=== PATIENT | male | born 1995 | race Caucasian/White ===

== ENCOUNTER 2017-11-04 09:32 | Emergency (ER) | payer BC ==
[~2017-11-04] VITALS: Ht 175.3 cm; Wt 74.8 kg
[2017-11-04] MEDS ORDERED: NS(*) 0.9% 1000 ML BAG 1,000 ML IV ONE ×2 (09:35)
[2017-11-04] MEDS ORDERED: ONDANSETRON 4 MG/2 ML VIAL IVP ONE (09:35)
--- NOTE | 2017-11-04 09:39 | ER Report ---
History and Physical Time Seen By MD: 09:38 HPI/ROS CHIEF COMPLAINT: Vomiting HISTORY OF PRESENT ILLNESS: 22-year-old male who was out drinking last night as there was [employer] [place] [place] drank heavily until about midnight to 1:00 went to bed woke about 2 hours later began to projectile vomit vomiting persistently for the last couple of hours brought here by his girlfriend for evaluation otherwise unremarkable mild stomach discomfort in the epigastrium otherwise negative except as complaints REVIEW OF SYSTEMS: Respiratory: No cough, no dyspnea. Cardiovascular: No chest pain, no palpitations. Gastrointestinal: Vomiting and epigastric pain Musculoskeletal: No back pain. Remainder of the 14 system rev: Yes Allergies: Coded Allergies: No Known Drug Allergies (Unverified , 11/04/17) Home Meds No Active Prescriptions or Reported Meds Reviewed Nurses Notes: Yes Old Medical Records Reviewed: Yes Constitutional Vital Sign - Last 24 Hours 11/04/17 09:39 Temp 97.9 Pulse 93 Resp 16 B/P (MAP) 127/82 Pulse Ox 95 O2 Delivery Room Air Physical Exam General Appearance: The patient is alert, has no immediate need for airway protection and no current signs of toxicity. [ ] Eyes: Pupils equal and round no injection. Respiratory: Chest is non tender, lungs are clear to auscultation. Cardiac: regular rate and rhythm [ ] Gastrointestinal: Abdomen is soft and non tender, no masses, bowel sounds normal. Musculoskeletal: Neck: Neck is supple and non tender. Extremities have full range of motion and are non tender. Skin: No rashes or lesions. [ ] DIFFERENTIAL DIAGNOSIS: After history and physical exam differential diagnosis was considered for enteritis gastroenteritis alcohol toxicity Medical Decision Making Data Points Result Diagram: 11/04/17 0959 11/04/17 0959 Laboratory Hematology Test 11/04/17 09:59 11/04/17 10:25 Red Blood Count 5.47 M/uL (4.00-5.60) Mean Corpuscular Volume 88.4 fL (80.0-96.0) Mean Corpuscular Hemoglobin 30.5 pg (26.0-33.0) Mean Corpuscular Hemoglobin Concent 34.5 g/dL (32.0-36.0) Red Cell Distribution Width 12.9 % (11.5-14.5) Mean Platelet Volume 7.0 fL (7.2-11.1) Neutrophils (%) (Auto) 80.9 % (39.4-72.5) Lymphocytes (%) (Auto) 14.2 % (17.6-49.6) Monocytes (%) (Auto) 4.4 % (4.1-12.4) Eosinophils (%) (Auto) 0.1 % (0.4-6.7) Basophils (%) (Auto) 0.4 % (0.3-1.4) Nucleated RBC Relative Count (auto) 0.0 /100WBC Neutrophils # (Auto) 5.4 K/uL (2.0-7.4) Lymphocytes # (Auto) 0.9 K/uL (1.3-3.6) Monocytes # (Auto) 0.3 K/uL (0.3-1.0) Eosinophils # (Auto) 0.0 K/uL (0.0-0.5) Basophils # (Auto) 0.0 K/uL (0.0-0.1) Nucleated RBC Absolute Count (auto) 0.00 K/uL Sodium Level 144 mmol/L (137-145) Potassium Level 4.0 mmol/L (3.5-5.0) Chloride Level 104 mmol/L (98-107) Carbon Dioxide Level 25 mmol/L (22-30) Blood Urea Nitrogen 9 mg/dl (9-21) Creatinine 0.80 mg/dl (0.66-1.25) Glomerular Filtration Rate Calc > 60.0 Random Glucose 100 mg/dl (75-110) Calcium Level 9.2 mg/dl (8.4-10.2) Total Bilirubin 0.8 mg/dl (0.2-1.3) Aspartate Amino Transf (AST/SGOT) 38 U/L (0-35) Alanine Aminotransferase (ALT/SGPT) 49 U/L (0-56) Alkaline Phosphatase 101 U/L (0-126) Total Protein 7.3 gm/dl (6.3-8.2) Albumin 4.3 g/dl (3.5-5.0) Lipase 64 U/L (23-300) Serum Alcohol 110 mg/dl Chemistry Test 11/04/17 09:59 11/04/17 10:25 White Blood Count 6.6 k/uL (4.5-11.0) Red Blood Count 5.47 M/uL (4.00-5.60) Hemoglobin 16.7 g/dL (14.0-18.0) Hematocrit 48.4 % (42.0-52.0) Mean Corpuscular Volume 88.4 fL (80.0-96.0) Mean Corpuscular Hemoglobin 30.5 pg (26.0-33.0) Mean Corpuscular Hemoglobin Concent 34.5 g/dL (32.0-36.0) Red Cell Distribution Width 12.9 % (11.5-14.5) Platelet Count 352 K/uL (150-450) Mean Platelet Volume 7.0 fL (7.2-11.1) Neutrophils (%) (Auto) 80.9 % (39.4-72.5) Lymphocytes (%) (Auto) 14.2 % (17.6-49.6) Monocytes (%) (Auto) 4.4 % (4.1-12.4) Eosinophils (%) (Auto) 0.1 % (0.4-6.7) Basophils (%) (Auto) 0.4 % (0.3-1.4) Nucleated RBC Relative Count (auto) 0.0 /100WBC Neutrophils # (Auto) 5.4 K/uL (2.0-7.4) Lymphocytes # (Auto) 0.9 K/uL (1.3-3.6) Monocytes # (Auto) 0.3 K/uL (0.3-1.0) Eosinophils # (Auto) 0.0 K/uL (0.0-0.5) Basophils # (Auto) 0.0 K/uL (0.0-0.1) Nucleated RBC Absolute Count (auto) 0.00 K/uL Glomerular Filtration Rate Calc > 60.0 Calcium Level 9.2 mg/dl (8.4-10.2) Total Bilirubin 0.8 mg/dl (0.2-1.3) Aspartate Amino Transf (AST/SGOT) 38 U/L (0-35) Alanine Aminotransferase (ALT/SGPT) 49 U/L (0-56) Alkaline Phosphatase 101 U/L (0-126) Total Protein 7.3 gm/dl (6.3-8.2) Albumin 4.3 g/dl (3.5-5.0) Lipase 64 U/L (23-300) Serum Alcohol 110 mg/dl Toxicology Test 11/04/17 09:59 Serum Alcohol 110 mg/dl Urinalysis Test 11/04/17 10:25 ED Course/Re-evaluation ED Course ED clinical course medical decision making 22-year-old male comes in with persistent vomiting his alcohol level at time of presentation approximately 10 hours after he stopped drinking still at 110 which puts him at about a 3-400 level at the time that he allegedly stop drinking this is obvious alcohol toxicity alcohol poisoning and alcohol intoxication we'll advise him to desist from alcohol consumption and give 24-48 hours for to get better Decision to Disposition Date: Nov 04, 2017 Decision to Disposition Time: 10:40 Depart Departure Latest Vital Signs Vital Signs Date Time Temp Pulse Resp B/P (MAP) Pulse Ox O2 Delivery O2 Flow Rate FiO2 11/04/17 09:39 97.9 93 16 127/82 95 Room Air Impression: Primary Impression: Alcohol poisoning Additional Impression: Alcohol intoxication Condition: Improved Disposition: HOME OR SELF-CARE Referrals: SARAH MAYO MD 5 Days New Scripts No Active Prescriptions or Reported Meds Patient Instructions: Abuse of Alcohol (DC), Alcohol Intoxication (DC) Problem Qualifiers JUNIOR MARTINEZ MD Nov 04, 2017 09:39
[2017-11-04 10:07] LABS: PLATELET COUNT, AUTOMATED 352 K/uL (150-450)
[2017-11-04 10:41] VITALS: BP 117/67
== END 2017-11-04 10:46 | disposition home or self-care (01) ==
LOC: ER 09:47
DX: T51.91XA Toxic effect of unspecified alcohol, accidental (unintentional), initial encounter (principal); Y90.5 Blood alcohol level of 100-119 mg/100 ml
CPT/HCPCS: 80320; 81001; 83690; 85025; 96361; 96374; 99284; J2405; J7030; 82040; 82247; 82310; 82374; 82435; 82565; 82947; 84075; 84132; 84155; 84295; 84450; 84460; 84520